=== PATIENT | male | born 1970 | race Caucasian/White ===

== ENCOUNTER 2019-09-01 14:50 | Emergency (ER) | payer MEDICAID, OTHER ==
[~2019-09-01] VITALS: Ht 188 cm; Wt 104.3 kg
[2019-09-01 15:02] VITALS: BP_SYST 177
--- NOTE | 2019-09-01 15:02 | NUR ---
Patient to ER bed 3 to gown for evaluation. Side rails up.
--- NOTE | 2019-09-01 15:05 | NUR ---
Patient presented to ER C/O Chest pain. Patient A&Ox4, ambulatory to ER, pain 04/15, denies N/V/D, skin discolored, cap refill<3. Patient states he has had Chest pain x2 weeks and upon assessment staes he also has headache, and abdominal cramps, Pt has Hx of renal failure and HTN
--- NOTE | 2019-09-01 15:06 | NUR ---
ER Dr. Adamson at bedside examining patient.
[2019-09-01 15:57] LABS: BASOPHILS # (AUTO) 0.1 K/uL (0.0-0.2); EOSINOPHILS # (AUTO) 0.5 K/uL (0.0-0.4); EOSINOPHILS % (AUTO) 8.9 % (0.0-4.0); HEMOGLOBIN 7.2 g/dL (14.0-18.0); LYMPHOCYTES # (AUTO) 0.6 K/uL (1.0-5.5); LYMPHOCYTES % (AUTO) 9.3 % (20.5-51.5); MEAN CORPUSCULAR HEMOGLOBIN 31 pg (27-31); MEAN CORPUSCULAR HGB CONC 34 % (32-36); MEAN CORPUSCULAR VOLUME 91 fL (79.0-98.0); MONOCYTES # (AUTO) 0.5 K/uL (0.0-1.0); MONOCYTES % (AUTO) 7.8 % (1.7-9.3); NEUTROPHILS # (AUTO) 4.4 K/uL (1.8-7.7); PLATELET COUNT (AUTO) 143 K/uL (130-430); RED BLOOD CELL COUNT(AUTO) 2.36 MIL/uL (4.2-6.2); RED CELL DISTRIBUTION WIDTH 13.5 % (9.0-15.0); WHITE BLOOD COUNT (AUTO) 6.1 K/uL (4.8-10.8)
[2019-09-01 16:07] LABS: INR 1.1 (0.80-1.20); PROTHROMBIN TIME 10.6 SECS (9.5-12.5)
[2019-09-01 16:09] LABS: HEMATOCRIT 21.4 % (36-54)
[2019-09-01 16:12] LABS: POTASSIUM 4.9 mmol/L (3.5-5.1)
[2019-09-01 16:16] LABS: ALBUMIN 3.6 g/dL (3.4-4.8); TOTAL BILIRUBIN 0.3 mg/dL (0.0-1.0)
[2019-09-01 16:23] LABS: CALCIUM 5.3 mg/dL (8.4-11.0)
[2019-09-01 16:24] LABS: CREATININE 17.23 mg/dL (0.55-1.30)
[2019-09-01] MEDS ORDERED: SODIUM POLYSTYRENE SULFONATE 15 GM/60 ML UDBTL PO ONE (16:45)
[2019-09-01] MEDS ORDERED: NACL 0.9% 1,000 ML IV ONE (16:45)
[2019-09-01] MEDS ORDERED: DEXTROSE 50% JECT 50 ML DISP.SYRIN IVP ONE (16:45)
[2019-09-01] MEDS ORDERED: CALCIUM CHLORIDE 1 GM/10 ML DISP.SYRIN (14 mEq Ca++/SYR) IVP ONE (16:45)
[2019-09-01] MEDS ORDERED: INSULIN REGULAR, HUMAN 10 UNITS/0.1 ML INJ IVP ONE (16:45)
[2019-09-01] MEDS ORDERED: SODIUM BICARBONATE 8.4% JECT 50 MEQ/50 ML SYRINGE IVP ONE (16:45)
[2019-09-01] MEDS ORDERED: cloNIDine HCL 0.1 MG TABLET PO ONE (17:00)
--- NOTE | 2019-09-01 17:10 | NUR ---
Peyton RT at bedside for AMANDA
--- NOTE | 2019-09-01 17:15 | NUR ---
# 20 gauge angiocath placed to right arm. Use of asceptic technique. Opsite placed over site. Blood return noted. Blood for lab drawn from site. Flushed with 10 cc of normal saline. No evidence of infiltration noted. Patient tolerated well.
--- NOTE | 2019-09-01 18:31 | NUR ---
Transfer consent signed by patient, family at bedside.
--- NOTE | 2019-09-01 19:12 | NUR ---
REPORT GIVEN TO SANJU ZAYAS
--- NOTE | 2019-09-01 20:00 | NUR ---
VSS no s/s of acute distress Resting on gurney rails up
--- NOTE | 2019-09-01 21:05 | NUR ---
Dr. Lanza bedside for Pt update
--- NOTE | 2019-09-01 22:10 | NUR ---
Transfer to [facility] via ACLS protocol. Licensed nurse present. IV present no signs or symptoms of infiltration.
--- NOTE | 2019-09-01 22:10 | NUR ---
Patient will be admitted to care of Dr. Shore. Admitted to [facility]. Will go to ER. Belongings list completed. Complete and up to date summary report printed. SBAR report to be given at bedside with opportunity for questions.
[2019-09-01 22:25] VITALS: BP_SYST 142
== END 2019-09-01 22:10 | disposition short-term general hospital (02) ==
LOC: SED 14:50
DX: N19 Unspecified kidney failure (principal); Z88.0 Allergy status to penicillin
CPT/HCPCS: 36415; 36600; 71045; 74176; 80053; 82150; 82803; 83605; 83690; 83880; 84484; 85025; 85610; 85730; 93005; 96374; 96375; 99285; J7030; J1815